=== PATIENT | male | born 1995 | race African-American/Black ===

== ENCOUNTER 2017-04-22 16:46 | Emergency (ER) | payer OTHER ==
[~2017-04-22] VITALS: Ht 188 cm; Wt 89.4 kg
[2017-04-22 16:49] VITALS: BP 107/66
--- NOTE | 2017-04-22 16:56 | NUR ---
PATIENT TO BED 4.
--- NOTE | 2017-04-22 16:59 | NUR ---
21M BIB FAMILY C/O ANXIETY AND PANIC ATTACK X 2 DAYS; PT STATES WAS SEEN IN [facility] YESTERDAY FOR SAME SIGNS/SYMPTOMS; PT STATES " I FEEL BETTER THAN YESTERDAY"; FAMILY STATES " WE'RE JUST REALLY HERE BECAUSE WE DON'T KNOW WHERE HE PUT THE PRESCRIPTION FOR THE MEDICATION HE WAS GIVEN AND HE NEEDS A DOCTOR'S NOTE FOR WORK FOR YESTERDAY AND TODAY"; PT C/O ACHING BODY ACHES, NON-RADIATING, 4/10 X 2 DAYS; PT AA&OX4, PERRLA, BL LUNG SOUNDS CLEAR, RR EVEN/UNLABORED, EQUAL RISE/FALL OF CHEST NOTED AT THIS TIME; PT STATES NO N/V/D AT THIS TIME; PT RESTING IN BED WITH HOB ELEVATED AND IN LOWEST POSITIONED FOR COMFORT; ER MD MADE AWARE OF STATUS. WILL CONTINUE TO MONITOR.
[2017-04-22] MEDS ORDERED: LORazepam 1 MG TAB PO ONE (17:00)
[2017-04-22 17:27] VITALS: BP 122/70
--- NOTE | 2017-04-22 17:27 | NUR ---
Patient discharged with v/s stable. Written and verbal after care instructions given and explained. Patient alert, oriented and verbalized understanding of instructions. Ambulatory with steady gait. All questions addressed prior to discharge. ID band removed. Patient advised to follow up with PMD. Rx of ATIVAN 1MG TAB given. Patient educated on indication of medication including possible reaction and side effects. Opportunity to ask questions provided and answered.
== END 2017-04-22 17:27 | disposition home or self-care (01) ==
LOC: MED 16:46
DX: F41.9 Anxiety disorder, unspecified (principal)
CPT/HCPCS: 99284